=== PATIENT | male | born 1990 | race Caucasian/White ===

== ENCOUNTER 2019-04-08 21:26 | Emergency (ER) | payer OTHER ==
[~2019-04-08] VITALS: Ht 172.7 cm; Wt 90.7 kg
[2019-04-08] MEDS ORDERED: HYDROCODON-ACE1 EAC8 PO (22:31)
[2019-04-08] MEDS ORDERED: MEDROLDOSEPACK PO (22:31)
[2019-04-08 23:31] VITALS: BP 142/94
== END 2019-04-08 23:32 | disposition home or self-care (01) ==
LOC: M.ERS 21:26
DX: M25.512 Pain in left shoulder (principal); Z88.0 Allergy status to penicillin

== ENCOUNTER 2021-05-05 08:13 | Emergency (ER) | payer OTHER ==
[~2021-05-05] VITALS: Ht 172.7 cm; Wt 89.8 kg
[~2021-05-05 08:13] MED LIST: HYDROCODON-ACE1 EAC8 PO; MEDROLDOSEPACK PO
[2021-05-05] MEDS ORDERED: FLEXERIL PO (11:05)
[2021-05-05] MEDS ORDERED: IBUPROFEN 800800 M1 PO (11:06)
[2021-05-05 11:18] VITALS: BP 149/85
== END 2021-05-05 11:19 | disposition home or self-care (01) ==
LOC: M.ERS 08:13
DX: S86.912A Strain of unspecified muscle(s) and tendon(s) at lower leg level, left leg, initial encounter (principal); F41.9 Anxiety disorder, unspecified; Z88.0 Allergy status to penicillin; X58.XXXA Exposure to other specified factors, initial encounter; Y93.89 Activity, other specified; Y92.89 Other specified places as the place of occurrence of the external cause; Y99.8 Other external cause status